=== PATIENT | male | born 1980 | race African-American/Black ===

== ENCOUNTER 2024-05-29 14:02 | Emergency (ER) | payer OTHER ==
[~2024-05-29] VITALS: Ht 183.5 cm; Wt 102.3 kg
[2024-05-29] MEDS ORDERED: IBUP-45 PO (14:05)
[2024-05-29 14:07] VITALS: TEMP 97.9
[2024-05-29 19:45] VITALS: BP 133/74; PULSE 74; RESP 17; O2SAT 98
[2024-05-29] MEDS ORDERED: AMOX250C4 PO (20:32)
[2024-05-29] MEDS ORDERED: IBUP-2280 PO (20:33)
[2024-05-29] MEDS: KETOROLAC TROMETHAMINE 30 MG/ML VIAL IM ONE (20:37)
[2024-05-29] MEDS: TraMADol HCL 50 MG TABLET PO ONE (20:37)
== END 2024-05-29 21:23 | disposition home or self-care (01) ==
LOC: EMS 14:02
DX: K02.9 Dental caries, unspecified (principal)
CPT/HCPCS: 99283; 96372; J1885